=== PATIENT | female | born 1965 | race Caucasian/White ===

== ENCOUNTER 2023-09-10 16:02 | Outpatient (REF) | payer OTHER, SELFPAY ==
[2023-09-10 17:29] LABS: C Reactive Protein < 0.10 mg/dL (< or = 0.50)
[2023-09-10 17:33] LABS: Monotest Negative (Negative)
[2023-09-10 17:40] LABS: Erythrocyte Sedimentation Rate 6 MM/HR (0-20)
[2023-09-11 16:43] LABS: Lyme Abs Screen <0.90 index
[2023-09-16 17:30] LABS: Acetylcholine Receptor Binding <0.30 nmol/L
[2023-09-26 16:48] LABS: Acetylcholine Recep Modulating 8
== END 2023-09-10 16:03 | disposition home or self-care (01) ==
LOC: HO.LAB 16:02
PROVIDERS: PCP Internal Medicine; Visit Provider Psychiatry & Neurology Neurology
DX: G44.209 Tension-type headache, unspecified, not intractable (principal)
CPT/HCPCS: 36415; 82550; 85652; 86041; 86043; 86140; 86308; 86617; 86618

== ENCOUNTER 2023-10-06 19:20 | Outpatient (REF) | payer OTHER, SELFPAY ==
--- NOTE | ~2023-10-06 | MR_ITS ---
EXAMINATION: MR BRAIN WITHOUT CONTRAST CLINICAL INFORMATION: Dizziness. COMPARISON: None. TECHNIQUE: Multiplanar, multisequence imaging of the brain was performed without contrast. FINDINGS: No diffusion abnormalities are identified to suggest an acute or subacute infarct. The ventricles are normal in size. No mass effect or midline shift is seen. No brain parenchymal signal abnormality is noted. No extra-axial fluid collections are seen. The brainstem and cerebellum are normal. The gradient refocused acquisition is normal. The craniovertebral junction, marrow signal, and midline structures are normal. The major intracranial flow voids at the level of the [place] are preserved. The dural venous sinus flow voids are maintained. The mastoid air cells and paranasal sinuses are fairly well aerated. MR/MR head/brain wo con IMPRESSION: Normal MRI of the brain. No acute process.
== END 2023-10-06 19:21 | disposition home or self-care (01) ==
LOC: HO.MRI 19:20
PROVIDERS: PCP Internal Medicine; Visit Provider Psychiatry & Neurology Neurology
DX: R42 Dizziness and giddiness (principal); R13.10 Dysphagia, unspecified
CPT/HCPCS: 70551

== ENCOUNTER 2023-10-15 16:29 | Outpatient (REF) | payer OTHER, SELFPAY ==
--- NOTE | ~2023-10-15 | XR_ITS ---
EXAMINATION: XR THORACIC SPINE XR LUMBAR SPINE INDICATION: Back pain. COMPARISON: None. TECHNIQUE: 3 views of the thoracic spine. 3 views of the lumbar spine. FINDINGS: THORACIC SPINE: Prominence of the ascending aorta. Surgical clips in the right upper quadrant of the abdomen. Mild multilevel degenerative changes in the thoracic spine. The bones are diffusely demineralized. Degenerative changes on very limited images of the cervical spine could be evaluated with dedicated cervical spine images. LUMBAR SPINE: Slight leftward curvature of the lumbar spine. Mild degenerative changes in the bilateral sacroiliac joints. Surgical clip in the pelvis. Straightening of the normal lumbar lordosis. Facet arthritis in the [id number] lumbar spine. Multilevel lumbar spondylosis with multilevel loss of disc space height. XR/XR lumbar spine 2-3V IMPRESSION: 1. Mild multilevel degenerative changes in the thoracic spine. 2. Multilevel lumbar spondylosis with multilevel loss of disc space height. 3. 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 4. Prominence of the ascending aorta.
--- NOTE | ~2023-10-15 | XR_ITS ---
EXAMINATION: XR THORACIC SPINE XR LUMBAR SPINE INDICATION: Back pain. COMPARISON: None. TECHNIQUE: 3 views of the thoracic spine. 3 views of the lumbar spine. FINDINGS: THORACIC SPINE: Prominence of the ascending aorta. Surgical clips in the right upper quadrant of the abdomen. Mild multilevel degenerative changes in the thoracic spine. The bones are diffusely demineralized. Degenerative changes on very limited images of the cervical spine could be evaluated with dedicated cervical spine images. LUMBAR SPINE: Slight leftward curvature of the lumbar spine. Mild degenerative changes in the bilateral sacroiliac joints. Surgical clip in the pelvis. Straightening of the normal lumbar lordosis. Facet arthritis in the [id number] lumbar spine. Multilevel lumbar spondylosis with multilevel loss of disc space height. XR/XR thoracic spine 3V IMPRESSION: 1. Mild multilevel degenerative changes in the thoracic spine. 2. Multilevel lumbar spondylosis with multilevel loss of disc space height. 3. Facet arthritis in the [id number] lumbar spine. 4. Prominence of the ascending aorta.
== END 2023-10-15 16:30 | disposition home or self-care (01) ==
LOC: HO.XRAY 16:29
PROVIDERS: PCP Internal Medicine; Visit Provider Psychiatry & Neurology Neurology
DX: M54.9 Dorsalgia, unspecified (principal)
CPT/HCPCS: 72072; 72100